=== PATIENT | female | born 1980 | race Hispanic/Latino ===

== ENCOUNTER 2018-02-19 15:55 | Emergency (ER) | payer BC, OTHER ==
--- NOTE | 2018-02-19 17:57 | RAD REPORT ---
EXAM DESCRIPTION: RAD - Hip Left 2 View - 02/19/2018 5:49 pm CLINICAL HISTORY: Left hip pain status post injury FINDINGS: No fracture or dislocation is seen. If the patient continues have symptoms to suggest an occult fracture then MRI would be recommended
--- NOTE | 2018-02-19 18:01 | RAD REPORT ---
EXAM DESCRIPTION: RAD - Knee Left 3 View - 02/19/2018 5:48 pm CLINICAL HISTORY: Left knee pain status post injury FINDINGS: No fracture or dislocation is seen.
--- NOTE | 2018-02-19 18:36 | EDPHYS ---
Physician Documentation [facility] Name: Sailaja Yu Age: 37 yrs Sex: Female : 1980 Arrival Date: 02/19/2018 Time: 16:00 Bed 27 Private MD: ED Physician Armando Purdy HPI: 02/19 17:15 This 37 yrs old Female presents to ER via Ambulatory with complaints of Fall cp Injury, Hip Pain. 17:15 Details of fall: The patient fell from an upright position, while walking. Onset: The cp symptoms/episode began/occurred today. Associated injuries: The patient sustained left hip and left knee, painful injury. SOLUTION DIRECTOR: 16:06 LMP 02/09/2018 hb Historical: - Allergies: 16:06 No Known Allergies; hb - Home Meds: 16:06 None [Active]; hb - PMHx: 16:06 None; hb - PSHx: 16:06 Cholecystectomy; ; hb 16:07 Tubal ligation; hb - Immunization history:: Adult Immunizations up to date. - Social history:: Smoking status: Patient/guardian denies using tobacco. ROS: 17:18 Constitutional: Negative for body aches, chills, fever, poor PO intake. cp 17:18 Eyes: Negative for injury, pain, redness, and discharge. cp 17:18 MS/extremity: Positive for pain, tenderness, of the left hip and left knee, Negative for paresthesias. 17:18 Skin: Negative for cellulitis, rash. 17:18 Neuro: Negative for altered mental status, loss of consciousness, weakness. 17:18 All other systems are negative. Exam: 17:25 Constitutional: The patient appears in no acute distress, alert, awake, well developed, cp well nourished, overweight 17:25 Head/Face: Normocephalic, atraumatic. cp 17:25 Eyes: Periorbital structures: appear normal, Conjunctiva: normal, no exudate, no injection, Lids and lashes: appear normal, bilaterally. 17:25 ENT: External ear(s): are unremarkable, Nose: is normal, Mouth: is normal. 17:25 Neck: ROM/movement: is normal, is supple, without pain, no range of motions limitations, no nuchal rigidity. 17:25 Chest/axilla: Inspection: normal. 17:25 Cardiovascular: Rate: normal, Rhythm: regular. 17:25 Respiratory: the patient does not display signs of respiratory distress, Respirations: normal, no use of accessory muscles, no retractions, no splinting, no tachypnea. 17:25 Abdomen/GI: Inspection: abdomen appears normal, Palpation: abdomen is soft and non-tender, in all quadrants. 17:25 Back: pain, is absent, ROM is normal. 17:25 Musculoskeletal/extremity: Perfusion: the extremity is normally perfused throughout, cp Sensation intact. Joints: All joints are normal except the left hip and left knee displays pain at rest, painful range of motion, tenderness. 17:25 Skin: cellulitis, is not appreciated, no rash present. cp Vital Signs: 16:06 BP 149 / 100; Pulse 97; Resp 16; Temp 97.5; Pulse Ox 100% on R/A; Weight 92.08 kg; hb Height 5 ft. 1 in. (154.94 cm); Pain 5/10; 17:56 BP 117 / 80; Pulse 79; Resp 16; Pulse Ox 98% on R/A; kr2 16:06 Body Mass Index 38.36 (92.08 kg, 154.94 cm) hb Procedures: 18:45 Splinting: Splint applied to left leg and left knee using knee immobilizer, applied by cp nurse. Examined by me, post splint application: neurovascular intact, Patient tolerated well. 18:45 Crutch training provided to patient and/or family. Return demonstration given. cp MDM: 16:37 Patient medically screened. cp 18:00 Differential diagnosis: fracture, sprain, strain. cp 18:34 Data reviewed: vital signs, nurses notes, radiologic studies, plain films. cp 18:34 Test interpretation: by ED physician or midlevel provider: plain radiologic studies. cp Counseling: I had a detailed discussion with the patient and/or guardian regarding: the historical points, exam findings, and any diagnostic results supporting the discharge/admit diagnosis, radiology results, the need for outpatient follow up, a orthopedic surgeon, to return to the emergency department if symptoms worsen or persist or if there are any questions or concerns that arise at home. Response to treatment: the patient's symptoms have mildly improved after treatment. 02/19 17:09 Order name: Urine Dipstick--Ancillary (enter results); Complete Time: 20:26 bd 02/19 17:09 Order name: Urine --Ancillary (enter results); Complete Time: 20:26 bd 02/19 16:36 Order name: Urine Dipstick-Ancillary (obtain specimen); Complete Time: 17:09 cp 02/19 17:14 Order name: XRAY Hip LEFT 2 view; Complete Time: 18:15 cp 02/19 18:15 Interpretation: Report reviewed. cp 02/19 17:14 Order name: XRAY Knee LEFT 3 view; Complete Time: 18:15 cp 02/19 18:15 Interpretation: Report reviewed. cp 02/19 16:36 Order name: Urine Test (obtain specimen); Complete Time: 17:09 cp 02/19 18:16 Order name: Knee Immobilizer; Complete Time: 18:26 cp 02/19 18:16 Order name: Crutches; Complete Time: 18:26 cp Administered Medications: 18:48 Drug: Ibuprofen 800 mg Route: PO; kr2 18:50 Follow up: Response: Medication administered at discharge. kr2 Disposition: 02/19/18 18:35 Discharged to Home. Impression: Pain in left knee - s/p fall, Pain in left hip - s/p fall, Fall on same level from slipping, tripping and stumbling. - Condition is Stable. - Discharge Instructions: Elastic Bandage and RICE, Knee Immobilizer, Knee Pain, Hip Pain. - Prescriptions for Naprosyn 500 mg Oral Tablet - take 1 tablet by ORAL route 2 times per day take with food; 20 tablet. Tramadol 50 mg Oral Tablet - take 1 tablet by ORAL route every 8 hours as needed; 15 tablet. - Medication Reconciliation Form, Thank You Letter, Antibiotic Education, Prescription Opioid Use form. - Work release form (02/19/18 19:43). em1 - Follow up: Shashank Betancourt MD; When: 2 - 3 days; Reason: left knee pain. - Problem is new. - Symptoms are unchanged. Addendum: 03/06/2018 19:51 Co-signature as Attending Physician, Armando Purdy MD I agree with the assessment and k dr plan of care. Signatures: Dispatcher [employer] EDNE Armando Purdy MD MD kdr Page, Corey, PA PA cp Bianca Velasquez RN RN hb Reaves, Karey, RN RN kr2 Ye Lennon1 Corrections: (The following items were deleted from the chart) 02/19 18:37 18:35 02/19/2018 18:35 Discharged to Home. Impression: Pain in left knee - s/p fall; cp Pain in left hip - s/p fall. Condition is Stable. Forms are Medication Reconciliation Form, Thank You Letter, Antibiotic Education, Prescription Opioid Use. Follow up: Dr. Shashank Betancourt; When: 2 - 3 days; Reason: left knee pain. Problem is new. Symptoms are unchanged. cp 18:51 18:37 02/19/2018 18:35 Discharged to Home. Impression: Pain in left knee - s/p fall; kr2 Pain in left hip - s/p fall; Fall on same level from slipping, tripping and stumbling. Condition is Stable. Discharge Instructions: Elastic Bandage and RICE, Knee Immobilizer, Knee Pain, Hip Pain. Prescriptions for Naprosyn 500 mg Oral Tablet - take 1 tablet by ORAL route 2 times per day take with food; 20 tablet, Tramadol 50 mg Oral Tablet - take 1 tablet by ORAL route every 8 hours as needed; 15 tablet. and Forms are Medication Reconciliation Form, Thank You Letter, Antibiotic Education, Prescription Opioid Use. Follow up: Dr. Shashank Betancourt; When: 2 - 3 days; Reason: left knee pain. Problem is new. Symptoms are unchanged. cp
--- NOTE | 2018-02-19 18:36 | ER ---
Nurse's Notes [facility] Name: Sailaja Yu Age: 37 yrs Sex: Female : 1980 Arrival Date: 02/19/2018 Time: 16:00 Bed 27 Private MD: Diagnosis: Pain in left knee-s/p fall;Pain in left hip-s/p fall;Fall on same level from slipping, tripping and stumbling Presentation: 02/19 16:04 Presenting complaint: Patient states: Fell onto crossed legs approx 1 hr while playing hb with son, head and felt a loud pop in her left knee, now c/o left knee and left hip pain 5/10. Transition of care: patient was not received from another setting of care. Onset of symptoms was February 19, 2018 at 14:00. Care prior to arrival: Medication(s) given: Motrin, 600 mg, at 1430. 16:04 Method Of Arrival: Ambulatory hb 16:04 Acuity: EMILIA 4 hb 17:38 Initial Sepsis Screen: Does the patient meet any 2 criteria? No. Patient's initial kr2 sepsis screen is negative. Does the patient have a suspected source of infection? No. Patient's initial sepsis screen is negative. DIRECTOR OF CLOUD SERVICES: 16:06 LMP 02/09/2018 hb Historical: - Allergies: 16:06 No Known Allergies; hb - Home Meds: 16:06 None [Active]; hb - PMHx: 16:06 None; hb - PSHx: 16:06 Cholecystectomy; ; hb 16:07 Tubal ligation; hb - Immunization history:: Adult Immunizations up to date. - Social history:: Smoking status: Patient/guardian denies using tobacco. Screenin:45 Abuse screen: Denies threats or abuse. Denies injuries from another. Nutritional kr2 screening: No deficits noted. Tuberculosis screening: No symptoms or risk factors identified. Fall Risk Fall in past 12 months (25 points). Assessment: 16:45 General: Appears in no apparent distress. comfortable, well groomed, well developed, kr2 well nourished, Behavior is calm, cooperative, appropriate for age. Pain: Complains of pain in left knee Pain does not radiate. Pain currently is 7 out of 10 on a pain scale. Quality of pain is described as aching, tender, Pain began suddenly, Is continuous, Alleviated by rest, cold application, Aggravated by increased activity, repositioning, weight bearing, Noted to be grimacing, guarding. Neuro: Level of Consciousness is awake, alert, obeys commands, Oriented to person, place, time, situation, Appropriate for age. Cardiovascular: Capillary refill < 3 seconds in bilateral fingers Patient's skin is warm and dry. Respiratory: Airway is patent Respiratory effort is even, unlabored, Respiratory pattern is regular, symmetrical. GI: Abdomen is flat, non-distended. : No signs and/or symptoms were reported regarding the genitourinary system. Urine is clear. EENT: Nares are clear bilaterally Oral mucosa is moist. Derm: Skin is intact, is healthy with good turgor, Skin is pink, warm \\T\\ dry. Musculoskeletal: Circulation, motion, and sensation intact. Range of motion: intact in left knee. Injury Description: fall resulting in knee pain. Patient states "I heard a pop and it just doesn't fee right now.". 17:56 Reassessment: Patient appears in no apparent distress at this time. Patient and/or kr2 family updated on plan of care and expected duration. Pain level reassessed. Patient is alert, oriented x 3, equal unlabored respirations, skin warm/dry/pink. Ice pack in place to knee, warm blanket given. 18:49 Reassessment: Patient appears in no apparent distress at this time. Knee immobilizer kr2 placed without difficulty, patient tolerated well and verbalizes comfort. Given crutches and instructed on use. Patient demonstrated proper use. Vital Signs: 16:06 BP 149 / 100; Pulse 97; Resp 16; Temp 97.5; Pulse Ox 100% on R/A; Weight 92.08 kg; hb Height 5 ft. 1 in. (154.94 cm); Pain 5/10; 17:56 BP 117 / 80; Pulse 79; Resp 16; Pulse Ox 98% on R/A; kr2 16:06 Body Mass Index 38.36 (92.08 kg, 154.94 cm) hb ED Course: 16:00 Patient arrived in ED. al2 16:06 Triage completed. hb 16:06 Arm band placed on left wrist. hb 16:36 Vickey Rogers PA is PHCP. cp 16:36 Armando Purdy MD is Attending Physician. cp 16:45 Patient has correct armband on for positive identification. Bed in low position. Call kr2 light in reach. Side rails up X 1. Pulse ox on. NIBP on. Door closed. Warm blanket given. Head of bed elevated. 16:49 Beverly Llanes, RN is Primary Nurse. kr2 17:37 X-ray completed. Portable x-ray completed in exam room. Patient tolerated procedure kp1 well. 17:40 XRAY Hip LEFT 2 view In Process Unspecified. EDMS 17:40 XRAY Knee LEFT 3 view In Process Unspecified. EDMS 18:34 Shashank Betancourt MD is Referral Physician. cp 18:49 No provider procedures requiring assistance completed. Patient did not have IV access kr2 during this emergency room visit. Administered Medications: 18:48 Drug: Ibuprofen 800 mg Route: PO; kr2 18:50 Follow up: Response: Medication administered at discharge. kr2 Outcome: 18:35 Discharge ordered by MD. cp 18:50 Discharged to home ambulatory, with crutches, with family. kr2 18:50 Condition: good 18:50 Discharge instructions given to patient, Instructed on discharge instructions, follow up and referral plans. medication usage, crutch walking, splint use Demonstrated understanding of instructions, follow-up care, medications, crutch walking, splint care, Prescriptions given X 2. 18:51 Patient left the ED. kr2 Signatures: Dispatcher [employer] EDCO Vickey Rogers PA PA cp Baxter, Heather, RN RN hb Poole, Kathy kp1 Beverly Llanes RN RN kr2 Maye Mcintosh al2 Corrections: (The following items were deleted from the chart) 18:50 18:49 Reassessment: Patient appears in no apparent distress at this time. Knee kr2 immobilizer placed without difficulty, patient tolerated well and verbalizes comfort kr2
[2018-02-19] MEDS ORDERED: IBUPROFEN 400 MG TAB ONE (18:38)
[2018-02-19 19:08] VITALS: TEMP 97.5
[2018-02-19 19:09] VITALS: BP 117/80; O2SAT 98
[2018-02-19 19:14] LABS: Urine Blood NEGATIVE (NEG); Urine Glucose NEGATIVE (NEG); Urine Protein NEGATIVE (NEG); Urine pH 6.5 (5.0-7.0)
== END 2018-02-19 18:51 | disposition home or self-care (01) ==
LOC: ER 15:55
DX: M25.552 Pain in left hip (principal); M25.562 Pain in left knee; W01.0XXA Fall on same level from slipping, tripping and stumbling without subsequent striking against object, initial encounter; Y93.89 Activity, other specified; Y92.9 Unspecified place or not applicable
CPT/HCPCS: 81003; 81025; 99284

== ENCOUNTER 2018-05-03 21:42 | Emergency (ER) | payer OTHER ==
--- OUTSIDE RECORDS SUMMARY | 2018-05-03 21:44 | XMS REPORT ---
:1980 Author Organization e[employer] Care Team Providers Name Role Phone Jessie Richh Provider Role Unavailable Allergies, Adverse Reactions, Alerts Substance Reaction Event Type N.K.D.A. Info Not Available Non Drug Allergy Problems Problem Type Condition Code Onset Dates Condition Status Assessment Status post fall Z91.81 Active Assessment Pain of meniscus of left knee M25.562 Active Assessment Left medial knee pain M25.562 Active Medications Medication Code System Code Instructions Start Date End Date Status Dosage Duexis [facility] 44625333693 800-26.6 MG February 23, March 25, Active 1 tablet Orally Three 2018 2018 times a day Results No Known Results Summary Purpose eClinicalWorks Submission
--- OUTSIDE RECORDS SUMMARY | 2018-05-03 21:44 | XMS REPORT ---
:1980 Author Organization e[employer] Care Team Providers Name Role Phone Hernando Rich Provider Role Unavailable Allergies No Known Allergies Problems Problem Type Condition Code Onset Dates Condition Status Problem Tear of medial collateral ligament S83.412D Active of left knee, subsequent encounter Problem Adult BMI 40.0-44.9 kg/sq m Z68.41 Active Problem Hyperlipidemia, unspecified E78.5 Active hyperlipidemia type Assessment Adult BMI 40.0-44.9 kg/sq m Z68.41 Active Assessment Hyperlipidemia, unspecified E78.5 Active hyperlipidemia type Assessment Tear of medial collateral ligament S83.412D Active of left knee, subsequent encounter Medications Medication Code System Code Instructions Start Date End Date Status Dosage Duexis [facility] 10610602526 800-26.6 MG Active TAKE 1 TABLET BY MOUTH THREE TIMES DAILY NEEDED FOR PAIN Results No Known Results Summary Purpose eClinicalWorks Submission
--- OUTSIDE RECORDS SUMMARY | 2018-05-03 21:44 | XMS REPORT ---
:1980 Author Organization e[employer]Works Care Team Providers Name Role Phone Hilario Hernando Provider Role Unavailable Allergies, Adverse Reactions, Alerts Substance Reaction Event Type N.K.D.A. Info Not Available Non Drug Allergy Problems Problem Type Condition Code Onset Dates Condition Status Assessment Encounter for preventative adult Z00.01 Active health care exam with abnormal findings Assessment Tear of medial collateral ligament S83.412D Active of left knee, subsequent encounter Problem Adult BMI 40.0-44.9 kg/sq m Z68.41 Active Assessment Adult BMI 40.0-44.9 kg/sq m Z68.41 Active Medications Medication Code System Code Instructions Start Date End Date Status Dosage Duexis [facility] [id number] 800-26.6 MG February 23, March 25, Active 1 tablet Orally Three 2018 2018 times a day Results No Known Results Summary Purpose eClinicalWorks Submission
--- NOTE | 2018-05-03 22:25 | EDPHYS ---
Physician Documentation [facility] Name: Sailaja Yu Age: 37 yrs Sex: Female : 1980 Arrival Date: 05/03/2018 Time: 21:42 Bed 28 Private MD: Hilario [facility], [facility] ED Physician Jeremy Luu HPI: 05/03 22:21 This 37 yrs old Female presents to ER via Ambulatory with complaints of Wasp jr8 Sting-on Foot. 22:21 The patient was bitten on the left foot, by a wasp. Onset: The symptoms/episode jr8 began/occurred acutely, today. Associated signs and symptoms: Pertinent positives: tenderness. Severity of symptoms: At their worst the symptoms were mild, in the emergency department the symptoms are unchanged. The patient has not experienced similar symptoms in the past. The patient has not recently seen a physician. stated that she took the stinger out but still having radiating pain up leg from sting and cannot tolerate it. Took 800 mg Ibuprofen around 7 pm . 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 - Social history:: Smoking status: Patient/guardian denies using tobacco, Patient uses alcohol, occasionally. Patient/guardian denies using street drugs. - Ebola Screening: : No symptoms or risks identified at this time. ROS: 22:21 Eyes: Negative for injury, pain, redness, and discharge, ENT: Negative for injury, jr8 pain, and discharge, Neck: Negative for injury, pain, and swelling, Cardiovascular: Negative for chest pain, palpitations, and edema, Respiratory: Negative for shortness of breath, cough, wheezing, and pleuritic chest pain, Abdomen/GI: Negative for abdominal pain, nausea, vomiting, diarrhea, and constipation, Back: Negative for injury and pain, Neuro: Negative for headache, weakness, numbness, tingling, and seizure. 22:21 MS/extremity: Positive for pain, swelling, tenderness, of the left foot. Exam: 22:21 Cardiovascular: Regular rate and rhythm with a normal S1 and S2. No gallops, murmurs, jr8 or rubs. Normal PMI, no JVD. No pulse deficits. Respiratory: Lungs have equal breath sounds bilaterally, clear to auscultation and percussion. No rales, rhonchi or wheezes noted. No increased work of breathing, no retractions or nasal flaring. Skin: Warm, dry with normal turgor. Normal color with no rashes, no lesions, and no evidence of cellulitis. Neuro: Awake and alert, GCS 15, oriented to person, place, time, and situation. Cranial nerves II-XII grossly intact. Motor strength 5/5 in all extremities. Sensory grossly intact. Cerebellar exam normal. Normal gait. 22:21 Musculoskeletal/extremity: Extremities: grossly normal except: noted in the left foot: Patient has mild swelling to left medial mid foot with small red dot where stinger was. Tenderness to region. No ecchymosis or other signs of trauma noted , ROM: intact in all extremities, Circulation is intact in all extremities. Sensation intact. Vital Signs: 21:56 BP 123 / 93; Pulse 91; Resp 18 S; Temp 98.3(O); Pulse Ox 98% on R/A; Weight 90.72 kg bb (R); Height 5 ft. 1 in. (154.94 cm) (R); Pain 10/10; 21:56 Body Mass Index 37.79 (90.72 kg, 154.94 cm) bb MDM: 22:00 Patient medically screened. 8 22:21 Data reviewed: vital signs, nurses notes, and as a result, I will discharge patient. jr8 Data interpreted: Pulse oximetry: on room air is 98 %. Interpretation: normal. Counseling: I had a detailed discussion with the patient and/or guardian regarding: the historical points, exam findings, and any diagnostic results supporting the discharge/admit diagnosis, the need for outpatient follow up, a family practitioner, to return to the emergency department if symptoms worsen or persist or if there are any questions or concerns that arise at home. ED course: Told patient to [facility] to help with pain. Otherwise to continue OTC medications . Administered Medications: 22:48 Drug: [place] 10 mg-325 mg 1 tabs Route: PO; tl3 22:52 Follow up: Response: Medication administered at discharge. tl3 Disposition: 05/04 20:33 Co-signature as Attending Physician, Jeremy Luu MD I agree with the assessment and tw4 plan of care. Disposition: 05/03/18 22:24 Discharged to Home. Impression: Toxic effect of venom of wasps, accidental (unintentional). - Condition is Stable. - Discharge Instructions: Bee, Wasp, or Hornet Sting. - Medication Reconciliation Form, Thank You Letter, Antibiotic Education, Prescription Opioid Use form. - Follow up: Hernando Rich DO; When: 2 - 3 days; Reason: Recheck today's complaints, Continuance of care, Re-evaluation by your physician. - Problem is new. - Symptoms have improved. Signatures: Kathy De La Cruz RN RN Idris Vela PA PA jr8 Jeremy Luu MD MD tw4 Enriqueta Basurto RN RN tl3 Corrections: (The following items were deleted from the chart) 05/03 22:52 22:24 05/03/2018 22:24 Discharged to Home. Impression: Toxic effect of venom of wasps, tl3 accidental (unintentional). Condition is Stable. Forms are Medication Reconciliation Form, Thank You Letter, Antibiotic Education, Prescription Opioid Use. Follow up: Hernando Rich; When: 2 - 3 days; Reason: Recheck today's complaints, Continuance of care, Re-evaluation by your physician. Problem is new. Symptoms have improved. jr8
--- NOTE | 2018-05-03 22:25 | ER ---
Nurse's Notes [facility] Name: Sailaja Yu Age: 37 yrs Sex: Female : 1980 Arrival Date: 05/03/2018 Time: 21:42 Bed 28 Private MD: Hernando Rich Diagnosis: Toxic effect of venom of wasps, accidental (unintentional) Presentation: 05/03 21:54 Presenting complaint: Patient states: she was stung by a wasp on the bottom of her left bb foot earlier today and the pain is shooting up her left leg. Transition of care: patient was not received from another setting of care. Onset of symptoms was May 03, 2018. Risk Assessment: Do you want to hurt yourself or someone else? Patient reports no desire to harm self or others. Initial Sepsis Screen: Does the patient meet any 2 criteria? No. Patient's initial sepsis screen is negative. Does the patient have a suspected source of infection? No. Patient's initial sepsis screen is negative. Care prior to arrival: None. 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 - Social history:: Smoking status: Patient/guardian denies using tobacco, Patient uses alcohol, occasionally. Patient/guardian denies using street drugs. - Ebola Screening: : No symptoms or risks identified at this time. Screenin:49 Abuse screen: Denies threats or abuse. Nutritional screening: No deficits noted. tl3 Tuberculosis screening: No symptoms or risk factors identified. Fall Risk None identified. Assessment: 22:49 General: Appears uncomfortable, well groomed, well developed, well nourished, Behavior tl3 is calm, cooperative, appropriate for age. Pain: Complains of pain in left foot Pain currently is 10 out of 10 on a pain scale. Neuro: Level of Consciousness is awake, alert, obeys commands, Oriented to person, place, time, situation, Appropriate for age. Cardiovascular: Patient's skin is warm and dry. Respiratory: Airway is patent Respiratory effort is even, unlabored, Respiratory pattern is regular, symmetrical. GI: No signs and/or symptoms were reported involving the gastrointestinal system. : No signs and/or symptoms were reported regarding the genitourinary system. EENT: No signs and/or symptoms were reported regarding the EENT system. Derm: Reports burning, pain stung by wasp on left foot. Vital Signs: 21:56 BP 123 / 93; Pulse 91; Resp 18 S; Temp 98.3(O); Pulse Ox 98% on R/A; Weight 90.72 kg bb (R); Height 5 ft. 1 in. (154.94 cm) (R); Pain 10/10; 21:56 Body Mass Index 37.79 (90.72 kg, 154.94 cm) bb ED Course: 21:42 Patient arrived in ED. ds1 21:43 Hernando Rich DO is Private Physician. ds1 21:55 Triage completed. bb 21:56 Arm band placed on Patient placed in an exam room, on a stretcher, on pulse oximetry. bb Family accompanied patient. 22:00 Idris Townsend PA is PHCP. jr8 22:00 Jeremy Luu MD is Attending Physician. jr8 22:16 Enriqueta Basurto, REX is Primary Nurse. tl3 22:23 Hernando Rich DO is Referral Physician. jr8 22:49 Patient has correct armband on for positive identification. tl3 22:49 No provider procedures requiring assistance completed. Patient did not have IV access tl3 during this emergency room visit. Administered Medications: 22:48 Drug: Viola 10 mg-325 mg 1 tabs Route: PO; tl3 22:52 Follow up: Response: Medication administered at discharge. tl3 Outcome: 22:24 Discharge ordered by . jr8 22:49 Discharged to home ambulatory. tl3 22:49 Condition: stable 22:49 Discharge instructions given to patient, Instructed on discharge instructions, follow up and referral plans. medication usage, Demonstrated understanding of instructions, follow-up care, medications. 22:52 Patient left the ED. tl3 Signatures: Aliza Guerra ds1 Kathy De La Cruz RN RN bb Idris Townsend PA PA jr8 Sherine, Enriqueta, RN RN tl3
[2018-05-03] MEDS ORDERED: HYDROCODONE/APAP 10/325 TAB ONE (22:48)
[2018-05-03 22:56] VITALS: BP 123/93; TEMP 98.3; O2SAT 98
== END 2018-05-03 22:52 | disposition home or self-care (01) ==
LOC: ER 21:42
DX: T63.461A Toxic effect of venom of wasps, accidental (unintentional), initial encounter (principal); Y92.9 Unspecified place or not applicable
CPT/HCPCS: 99283

== ENCOUNTER 2020-02-04 19:48 | Emergency (ER) | payer OTHER ==
--- OUTSIDE RECORDS SUMMARY | 2020-02-04 19:50 | XMS REPORT ---
:1980 Author Organization eClinicalWorks Care Team Providers Name Role Phone Hernando Rich Provider Role Unavailable Allergies No Known Allergies Problems Problem Type Condition Code Onset Dates Condition Status Assessment Adult BMI 40.0-44.9 kg/sq m Z68.41 Active Problem Adult BMI 40.0-44.9 kg/sq m Z68.41 Active Problem Allergic rhinitis, unspecified J30.9 Active seasonality, unspecified trigger Problem Adult BMI 35.0-35.9 kg/sq m Z68.35 Active Problem Other chronic pain G89.29 Active Problem Hyperlipidemia, unspecified E78.5 Active hyperlipidemia type Problem Tear of medial collateral ligament S83.412D Active of left knee, subsequent encounter Problem Vitamin B12 deficiency E53.8 Active Problem Fatigue, unspecified type R53.83 Active Medications Medication Code Code Instructions Start End Status Dosage System Date Date Phentermine HCl [facility] 73697089089 30 MG Orally Sept Inactive 1 capsule Once a day 2018 Results No Known Results Summary Purpose eClinicalWorks Submission
--- OUTSIDE RECORDS SUMMARY | 2020-02-04 19:51 | XMS REPORT ---
:1980 Author Organization eClinicalWorks Care Team Providers Name Role Phone Hilario Hernando Provider Role Unavailable Allergies, Adverse Reactions, Alerts Substance Reaction Event Type N.K.D.A. Info Not Available Non Drug Allergy Problems Problem Type Condition Code Onset Dates Condition Status Assessment Allergic rhinitis, unspecified J30.9 Active seasonality, unspecified trigger Problem Adult BMI 40.0-44.9 kg/sq m Z68.41 [...] Status Dosage System Date Date Phentermine HCl [facility] 20297830104 37.5 MG Orally Active 1 tablet Once a day Lomaira [facility] 51600529122 8 MG Orally Active 1 tablet Three times a 30 minutes day before meals Results No Known Results Summary Purpose eClinicalWorks Submission
--- OUTSIDE RECORDS SUMMARY | 2020-02-04 19:51 | XMS REPORT ---
:1980 Author Organization eClinicalWorks Care Team Providers Name Role Phone Jessie Richh Provider Role Unavailable Allergies, Adverse Reactions, Alerts Substance Reaction Event Type N.K.D.A. Info Not Available Non Drug Allergy Problems Problem Type Condition Code Onset Dates Condition Status Assessment Adult BMI 35.0-35.9 kg/sq m Z68.35 Active Problem Adult BMI 40.0-44.9 kg/sq m Z68.41 Active Assessment Encounter for dietary counseling Z71.3 Active and surveillance Assessment Iron deficiency E61.1 Active Assessment Vitamin B12 deficiency E53.8 Active Assessment Fatigue, unspecified type R53.83 Active Problem Allergic rhinitis, unspecified J30.9 Active [...] Start End Status Dosage System Date Date Lomaira [facility] 82868267891 8 MG Orally Sep 06, Oct 06, Active 1 tablet Three times a 2018 2018 30 minutes day before meals Phentermine HCl [facility] 04223982152 37.5 MG Orally Active 1 tablet Once a day Results No Known Results Summary Purpose eClinicalWorks Submission
--- OUTSIDE RECORDS SUMMARY | 2020-02-04 19:51 | XMS REPORT ---
:1980 Author Organization eClinicalWorks Care Team Providers Name Role Phone Hernando Rich Provider Role Unavailable Allergies No Known Allergies Problems Problem Type Condition Code Onset Dates Condition Status Problem Adult BMI 40.0-44.9 kg/sq m Z68.41 [...] Medications Medication Code Code Instructions Start End Date Status Dosage System Date Zithromax [facility] 93840831681 250 MG Orally December Active 2 tablets Z-Kenan once a day 2019 today, then 1 tablet Results No Known Results Summary Purpose eClinicalWorks Submission
[2020-02-04] MEDS ORDERED: NA CHLORIDE 0.9% 1,000 ML ONE (20:18)
[2020-02-04] MEDS ORDERED: KETOROLAC 30 MG/ML INJ ONE (20:18)
[2020-02-04] MEDS ORDERED: ONDANSETRON 4 MG/2 ML VIAL ONE (20:18)
[2020-02-04 20:20] LABS: Absolute Lymphocytes (CBC) 2.3 K/uL (0.7-4.9); Basophils % 0.5 % (0-1.3); Hematocrit 37.8 % (36.0-45.0); Lymphocytes % 17.2 % (15.3-44.8); MPV 7.1 fL (7.6-11.3)
[2020-02-04 20:36] LABS: Albumin 3.7 g/dL (3.4-5.0); Bilirubin Direct 0.1 mg/dL (0-0.2); Bilirubin Total 0.4 mg/dL (0.2-1.0); Potassium 3.5 mmol/L (3.5-5.1); Protein, Total 8.3 g/dL (6.4-8.2)
[2020-02-04 20:50] LABS: Urine Bacteria 20-50 /HPF (<20); Urine Culture Reflex Order REFLEXED; Urine Mucus 3+ /HPF (NONE SEEN); Urine RBC >50 /HPF (NONE SEEN)
[2020-02-04] MEDS ORDERED: MORPHINE 4 MG/ML SYR ONE (21:09)
--- NOTE | 2020-02-04 21:11 | RAD REPORT ---
EXAM DESCRIPTION: CT - Stone Protocol - 02/04/2020 8:56 pm CLINICAL HISTORY: Abdominal pain. COMPARISON: 2011 TECHNIQUE: Computed axial tomography of the abdomen pelvis was obtained without oral or IV contrast. Lack of IV and oral contrast limits evaluation of solid organs, bowel, and vessels. Coronal reformat kassidy images were obtained and reviewed. All CT scans are performed using dose optimization technique as appropriate and may include automated exposure control or mA/KV adjustment according to patient size. FINDINGS: Small bilateral renal calculi. [id number] right hydronephrosis with perirenal strand ing. The right ureter is dilated. 5 millimeter calculus right UVJ Hounsfield unit on 1064 The liver, spleen, pancreas and adrenals appear grossly normal There is no evidence of diverticulitis. The appendix appears normal Small umbilical hernia. Cholecystectomy IMPRESSION: A 5 millimeter calculus right UVJ resulting in mild to moderate right hydronephrosis
[2020-02-04] MEDS ORDERED: FENTANYL CITR 100 MCG/2 ML ONE (22:01)
--- NOTE | 2020-02-04 22:12 | EDPHYS ---
Physician Documentation [facility] Name: Sailaja Yu Age: 39 yrs Sex: Female : 1980 Arrival Date: 02/04/2020 Time: 19:51 Bed 20 Private MD: ED Physician Jeremy Luu HPI: 02/04 06:52 This 39 yrs old Female presents to ER via Ambulatory with complaints of Kidney tw4 Pain, Nausea. 06:52 The patient presents to the emergency department with nausea, vomiting. Onset: The tw4 symptoms/episode began/occurred 2 day(s) ago. Possible causes: unknown. The symptoms are aggravated by nothing. The symptoms are alleviated by remaining still. Associated signs and symptoms: The patient has no apparent associated signs or symptoms. Severity of symptoms: At their worst the symptoms were moderate in the emergency department the symptoms are unchanged. The patient has not experienced similar symptoms in the past. 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 - Social history:: Smoking status: Patient denies any tobacco usage or history of. Patient uses alcohol, but reports only rare drinking. ROS: 02/04 06:52 Constitutional: Negative for fever, chills, and weight loss, Eyes: Negative for injury, tw4 pain, redness, and discharge, Cardiovascular: Negative for chest pain, palpitations, and edema, Respiratory: Negative for shortness of breath, cough, wheezing, and pleuritic chest pain, MS/Extremity: Negative for injury and deformity, Skin: Negative for injury, rash, and discoloration. Abdomen/GI: Positive for abdominal pain, nausea and vomiting, nausea, Negative for abdominal pain, nausea and vomiting, diarrhea, constipation, abdominal cramps, abdominal distension. Back: Positive for flank pain, on the right. Exam: 06:52 Constitutional: This is a well developed, well nourished patient who is awake, alert, tw4 and in no acute distress. Head/Face: Normocephalic, atraumatic. Cardiovascular: Regular rate and rhythm with a normal S1 and S2. No gallops, murmurs, or rubs. Normal PMI, no JVD. No pulse deficits. Respiratory: Lungs have equal breath sounds bilaterally, clear to auscultation and percussion. No rales, rhonchi or wheezes noted. No increased work of breathing, no retractions or nasal flaring. Abdomen/GI: Soft, non-tender, with normal bowel sounds. No distension or tympany. No guarding or rebound. No evidence of tenderness throughout. Back: No spinal tenderness. No costovertebral tenderness. Full range of motion. MS/ Extremity: Pulses equal, no cyanosis. Neurovascular intact. Full, normal range of motion. Neuro: Awake and alert, GCS 15, oriented to person, place, time, and situation. Cranial nerves II-XII grossly intact. Motor strength 5/5 in all extremities. Sensory grossly intact. Cerebellar exam normal. Normal gait. Vital Signs: 02/03 19:56 BP 145 / 93; Pulse 78; Resp 18 S; Temp 98.2(O); Pulse Ox 99% on R/A; Weight 88.45 kg bb (R); Height 5 ft. 1 in. (154.94 cm) (R); Pain 10/10; 20:36 BP 132 / 100; Pulse 84; Resp 17; Pulse Ox 99% on R/A; rv 21:36 BP 141 / 86; Pulse 72; Resp 16; Temp 98; Pulse Ox 99% ; Pain 7/10; rv 21:37 Pain 7/10; rv 22:33 BP 146 / 74; Pulse 79; Resp 16; Temp 98; Pulse Ox 99% on R/A; rv 19:56 Body Mass Index 36.84 (88.45 kg, 154.94 cm) bb MDM: 20:01 Patient medically screened. tw4 02/04 06:57 Differential diagnosis: Nonspecific abd pain, gastritis, cholecystitis. Data reviewed: tw4 vital signs, EMS record. Data interpreted: Pulse oximetry: Interpretation: normal. Counseling: I had a detailed discussion with the patient and/or guardian regarding: the historical points, exam findings, and any diagnostic results supporting the discharge/admit diagnosis. Medication response: Toradol relieved patient's pain. The symptoms have resolved. Response to treatment: the patient's symptoms have markedly improved after treatment, and as a result, I will discharge patient, administer pain medication. Special discussion: I discussed with the patient/guardian in detail that at this point there is no indication for admission to the hospital. It is understood, however, that if the symptoms persist or worsen the patient needs to return immediately for re-evaluation. 02/03 20:02 Order name: Basic Metabolic Panel; Complete Time: 22:20 tw4 02/03 20:02 Order name: CBC with Diff; Complete Time: 22:20 tw4 02/03 20:02 Order name: Creatinine for Radiology; Complete Time: 22:20 tw4 02/03 20:02 Order name: Hepatic Function; Complete Time: 22:20 tw4 02/03 20:02 Order name: Lipase; Complete Time: 22:20 tw4 02/03 20:02 Order name: Urine Microscopic Only; Complete Time: 22:20 tw4 02/03 20:36 Order name: CT Stone Protocol; Complete Time: 21:39 tw4 02/03 20:52 Order name: Urine Culture [facility] 02/03 20:02 Order name: IV Saline Lock; Complete Time: 20:21 tw4 02/03 20:02 Order name: Labs collected and sent; Complete Time: 20:21 tw4 02/03 20:02 Order name: Urine Dipstick-Ancillary (obtain specimen); Complete Time: 20:35 tw4 02/03 20:36 Order name: Urine Test (obtain specimen); Complete Time: 20:37 tw4 Administered Medications: 02/03 20:15 Drug: TORadol 30 mg Route: IVP; Site: right antecubital; rv 20:35 Follow up: Response: No adverse reaction; Pain is decreased rv 20:15 Drug: Zofran (Ondansetron) 4 mg Route: IVP; Site: right antecubital; rv 20:35 Follow up: Response: No adverse reaction rv 20:15 Drug: NS 0.9% 1000 ml Route: IV; Rate: 1 bolus; Site: right antecubital; rv 21:37 Follow up: IV Status: Completed infusion; IV Intake: 1000ml rv 21:13 Drug: morphine 4 mg {Note: rass 0.} Route: IVP; Site: right antecubital; rv 21:37 Follow up: Pain 7/10 Adult; Response: No adverse reaction; Pain is decreased; RASS: rv Alert and Calm (0) 21:58 Drug: fentaNYL (PF) 50 mcg {Note: rass 0.} Route: IVP; Site: left antecubital; rv 22:33 Follow up: Response: No adverse reaction; Marked relief of symptoms; Pain is decreased; rv RASS: Alert and Calm (0) 22:35 Drug: Macrobid 100 mg Route: PO; rv 22:35 Follow up: Response: Medication administered at discharge. rv Disposition: 02/04/20 22:11 Discharged to Home. Impression: Calculus of ureter. - Condition is Stable. - Discharge Instructions: Kidney Stones, Renal Colic. - Prescriptions for Tylenol- Codeine #3 300-30 mg Oral Tablet - take 2 tablets by ORAL route every 6 hours As needed; 15 tablet. Zofran 4 mg Oral Tablet - take 1 tablet by ORAL route every 12 hours As needed; 6 tablet. Flomax 0.4 mg Oral Capsule, Sust. Release 24 hr - take 1 capsule by ORAL route once daily 1/2 hour following the same meal each day; 30 capsule. Macrobid 100 mg Oral Capsule - take 1 capsule by ORAL route every 12 hours for 14 days; 28 capsule. - Medication Reconciliation Form, Thank You Letter, Antibiotic Education, Prescription Opioid Use form. - Follow up: Private Physician; When: Upon discharge from the Emergency Department; Reason: Recheck today's complaints, Continuance of care, Re-evaluation by your physician. Follow up: Denilson Olivo MD; When: Upon discharge from the Emergency Department; Reason: Recheck today's complaints, Continuance of care, Re-evaluation by your physician. - Problem is new. - Symptoms have improved. Signatures: Dispatcher [employer] EDID Kathy De La Cruz RN RN Jeremy Hubbard MD MD tw4 Efrain Foster RN RN rv Corrections: (The following items were deleted from the chart) 22:26 22:11 02/04/2020 22:11 Discharged to Home. Impression: Calculus of ureter. Condition is tw4 Stable. Forms are Medication Reconciliation Form, Thank You Letter, Antibiotic Education, Prescription Opioid Use. Follow up: Private Physician; When: Upon discharge from the Emergency Department; Reason: Recheck today's complaints, Continuance of care, Re-evaluation by your physician. Problem is new. Symptoms have improved. tw4 22:36 22:26 02/04/2020 22:11 Discharged to Home. Impression: Calculus of ureter. Condition is rv Stable. Discharge Instructions: Kidney Stones, Renal Colic. Prescriptions for Tylenol-Codeine #3 300-30 mg Oral Tablet - take 2 tablets by ORAL route every 6 hours As needed; 15 tablet, Zofran 4 mg Oral Tablet - take 1 tablet by ORAL route every 12 hours As needed; 6 tablet, Flomax 0.4 mg Oral Capsule, Sust. Release 24 hr - take 1 capsule by ORAL route once daily 1/2 hour following the same meal each day; 30 capsule, Macrobid 100 mg Oral Capsule - take 1 capsule by ORAL route every 12 hours for 14 days; 28 capsule. and Forms are Medication Reconciliation Form, Thank You Letter, Antibiotic Education, Prescription Opioid Use. Follow up: Private Physician; When: Upon discharge from the Emergency Department; Reason: Recheck today's complaints, Continuance of care, Re-evaluation by your physician. Follow up: Denilson Olivo; When: Upon discharge from the Emergency Department; Reason: Recheck today's complaints, Continuance of care, Re-evaluation by your physician. Problem is new. Symptoms have improved. tw4
--- NOTE | 2020-02-04 22:12 | ER ---
Nurse's Notes [facility] Name: Sailaja Yu Age: 39 yrs Sex: Female : 1980 Arrival Date: 02/04/2020 Time: 19:51 Bed 20 Private MD: Diagnosis: Calculus of ureter Presentation: 02/03 19:56 Chief complaint: Patient states: she is having back pain radiating to her abdomen she bb has had a history of kidney stones in the past pain just started this afternoon and is getting worse she is unable to hold anything down. Coronavirus screen: Patient denies fever greater than 100.4F, cough, shortness of breath, or difficulty breathing. Proceed with normal triage process. Ebola Screen: No symptoms or risks identified at this time. Initial Sepsis Screen: Does the patient meet any 2 criteria? No. Patient's initial sepsis screen is negative. Does the patient have a suspected source of infection? No. Patient's initial sepsis screen is negative. Risk Assessment: Do you want to hurt yourself or someone else? Patient reports no desire to harm self or others. Onset of symptoms was February 04, 2020. 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 - Social history:: Smoking status: Patient denies any tobacco usage or history of. Patient uses alcohol, but reports only rare drinking. Screenin:23 Abuse screen: Denies threats or abuse. Denies injuries from another. Nutritional rv screening: No deficits noted. Tuberculosis screening: No symptoms or risk factors identified. Fall Risk None identified. Assessment: 20:22 General: Appears in no apparent distress. uncomfortable, Behavior is calm, cooperative. rv Pain: Complains of pain in back and abdomen Pain currently is 10 out of 10 on a pain scale. Neuro: Level of Consciousness is awake, alert, obeys commands, Oriented to person, place, time, situation. Cardiovascular: Patient's skin is warm and dry. Respiratory: Airway is patent. GI: Abdomen is round non-distended, Pt is actively vomiting bile. : Reports inability to void. Derm: Skin is intact. 20:58 Reassessment: patient went to CT scan. rv 21:10 Reassessment: Patient appears in no apparent distress at this time. Patient and/or rv family updated on plan of care and expected duration. Pain level reassessed. Patient is alert, oriented x 3, equal unlabored respirations, skin warm/dry/pink. came back from CT scan. still complaining of 8/[address] Luu. 21:35 Reassessment: Patient appears in no apparent distress at this time. result of test rv results explained to the patient. 22:34 Reassessment: Patient appears in no apparent distress at this time. Patient and/or rv family updated on plan of care and expected duration. Pain level reassessed. Patient is alert, oriented x 3, equal unlabored respirations, skin warm/dry/pink. Vital Signs: 19:56 BP 145 / 93; Pulse 78; Resp 18 S; Temp 98.2(O); Pulse Ox 99% on R/A; Weight 88.45 kg bb (R); Height 5 ft. 1 in. (154.94 cm) (R); Pain 10/10; 20:36 BP 132 / 100; Pulse 84; Resp 17; Pulse Ox 99% on R/A; rv 21:36 BP 141 / 86; Pulse 72; Resp 16; Temp 98; Pulse Ox 99% ; Pain 7/10; rv 21:37 Pain 7/10; rv 22:33 BP 146 / 74; Pulse 79; Resp 16; Temp 98; Pulse Ox 99% on R/A; rv 19:56 Body Mass Index 36.84 (88.45 kg, 154.94 cm) bb ED Course: 19:51 Patient arrived in ED. ds1 19:58 Triage completed. bb 19:59 Arm band placed on Patient placed in an exam room, on a stretcher, on pulse oximetry. bb 20:01 Jeremy Luu MD is Attending Physician. tw4 20:10 Inserted saline lock: 18 gauge in right antecubital area, using aseptic technique. rv Blood collected. 20:10 Initial lab(s) drawn, by me, sent to lab. rv 20:19 Efrain Foster, REX is Primary Nurse. rv 20:23 Patient has correct armband on for positive identification. Pulse ox on. NIBP on. rv 20:56 CT completed. Patient tolerated procedure well. Patient moved back from CT. mw3 20:56 CT Stone Protocol In Process Unspecified. EDMS 22:26 Denilson Olivo MD is Referral Physician. tw4 22:35 No provider procedures requiring assistance completed. IV discontinued, intact, rv bleeding controlled, No redness/swelling at site. Pressure dressing applied. Administered Medications: 20:15 Drug: TORadol 30 mg Route: IVP; Site: right antecubital; rv 20:35 Follow up: Response: No adverse reaction; Pain is decreased rv 20:15 Drug: Zofran (Ondansetron) 4 mg Route: IVP; Site: right antecubital; rv 20:35 Follow up: Response: No adverse reaction rv 20:15 Drug: NS 0.9% 1000 ml Route: IV; Rate: 1 bolus; Site: right antecubital; rv 21:37 Follow up: IV Status: Completed infusion; IV Intake: 1000ml rv 21:13 Drug: morphine 4 mg {Note: rass 0.} Route: IVP; Site: right antecubital; rv 21:37 Follow up: Pain 7/10 Adult; Response: No adverse reaction; Pain is decreased; RASS: rv Alert and Calm (0) 21:58 Drug: fentaNYL (PF) 50 mcg {Note: rass 0.} Route: IVP; Site: left antecubital; rv 22:33 Follow up: Response: No adverse reaction; Marked relief of symptoms; Pain is decreased; rv RASS: Alert and Calm (0) 22:35 Drug: Macrobid 100 mg Route: PO; rv 22:35 Follow up: Response: Medication administered at discharge. rv Intake: 21:37 IV: 1000ml; Total: 1000ml. rv Outcome: 22:11 Discharge ordered by . tw4 22:36 Discharged to home ambulatory, with family. rv 22:36 Condition: good 22:36 Discharge instructions given to patient, Instructed on discharge instructions, follow up and referral plans. medication usage, Demonstrated understanding of instructions, follow-up care, medications, Prescriptions given X 4. 22:36 Patient left the ED. rv Signatures: Dispatcher [employer] Aliza Rose ds1 Kathy De La Cruz, RN RN bb Jeremy Luu MD MD tw4 Mariel Serrano mw3 Efrain Foster RN RN rv
[2020-02-04] MEDS ORDERED: NITROFURAN MACRO 100 MG CAP PO ONE (22:28)
[2020-02-04 22:44] VITALS: O2SAT 99
[2020-02-04 22:47] VITALS: TEMP 98
[2020-02-04 22:49] VITALS: BP 146/74
== END 2020-02-04 22:36 | disposition home or self-care (01) ==
LOC: ER 19:48
DX: N20.1 Calculus of ureter (principal); Z87.442 Personal history of urinary calculi
CPT/HCPCS: 96361; 87088; 85025; 87086; 80048; 36415; 80076; 81015; 83690; 76377; 74176; 96375; 96374; 99284; J3010; J7030; J2405

== ENCOUNTER 2021-06-28 05:58 | Day surgery (SDC) | payer OTHER ==
[2021-06-24 14:47] LABS: Basophils % 0.5 % (0-1.3); Lymphocytes % 21.2 % (15.3-44.8); RBC Red Blood Cell Count 4.94 M/uL (3.86-4.86)
[2021-06-24 15:00] LABS: Protime INR 0.99
[2021-06-24 15:05] LABS: BUN Blood Urea Nitrogen 10 mg/dL (7-18); Bicarbonate 26 mmol/L (21-32); Glucose Level 95 mg/dL (74-106); Potassium 3.9 mmol/L (3.5-5.1); Sodium Level 137 mmol/L (136-145)
--- NOTE | 2021-06-25 07:39 | EKG ---
Test Date: 2021-06-24 Test Time: 13:01:58 [employer] Defense Specialist: TG MEASUREMENT RESULTS: Intervals: Rate: 70 ND: 116 QRSD: 72 QT: 380 QTc: 410 [place]: P: 45 ND: 116 QRS: 14 T: 33 INTERPRETIVE STATEMENTS: Normal sinus rhythm Low voltage QRS Borderline ECG No previous ECG available for comparison Electronically Signed On 06-25-21 07:36:30 CDT by Pierre Wylie
--- NOTE | 2021-06-25 09:35 | RAD REPORT ---
EXAM DESCRIPTION: RAD - Chest Pa And Lat (2 Views) - 06/24/2021 10:38 pm CLINICAL HISTORY: pre procedure Prolonged technical malfunction delayed final written report. COMPARISON: None TECHNIQUE: Frontal and lateral views of the chest were obtained. FINDINGS: The lungs are underinflated with elevated right hemidiaphragm. Lateral view has motion deg radation. No acute lung parenchymal process identifiable. No failure or volume overload. Heart size is normal and central vasculature is within normal limits. No pleural effusion or pneumothorax seen. No acut e bony finding noted. No aortic abnormality. IMPRESSION: No acute cardiopulmonary process.
[2021-06-28] MEDS ORDERED: Ringers Lactate 1,000 ML IV ONE (06:36)
[2021-06-28] MEDS ORDERED: CEFAZOLIN/SWI 2gm 2 GM/20 ML SYR ONE (06:36)
[2021-06-28 06:48] LABS: Specific Gravity 1.015 (1.005-1.030)
[2021-06-28] MEDS ORDERED: dexAMETHasone 10 MG/ML VIAL ONE ×2 (06:48→07:31)
[2021-06-28] MEDS ORDERED: MIDAZOLAM HCL 2 MG/2 ML INJ ONE (06:48)
[2021-06-28] MEDS ORDERED: LIDOCAINE 1% MPF 5 ML VIAL ONE (06:48)
[2021-06-28] MEDS ORDERED: ROPLVACAINE HCL 40 ML ONE (06:48)
[2021-06-28] MEDS ORDERED: FENTANYL CITR 100 MCG/2 ML ONE (06:48)
[2021-06-28] MEDS ORDERED: LIDOCAINE 2% MPF 5 ML VIAL ONE (07:31)
[2021-06-28] MEDS ORDERED: propofoL 200 MG/20 ML VIAL IV ONE (07:31)
[2021-06-28] MEDS ORDERED: KETOROLAC 30 MG/ML INJ ONE (07:31)
[2021-06-28] MEDS ORDERED: ROCURONIUM 50 MG/5 ML VIAL IV ONE (07:31)
[2021-06-28] MEDS ORDERED: ONDANSETRON 4 MG/2 ML VIAL ONE ×2 (07:31→11:11)
[2021-06-28] MEDS ORDERED: EPINEPHRINE/PF 1 MG/ML AMP ONE (07:41)
[2021-06-28] MEDS ORDERED: GLYCOPYRROLATE 0.2 MG/ML SYR ONE (09:19)
--- NOTE | 2021-06-28 09:24 | P.BOP ---
Preoperative diagnosis: right shoulder rotator cuff tear, impingement syndrome Postoperative diagnosis: same, right shoulder SLAP tear Primary procedure: right shoulder arthroscopic rotator cuff tear debridement Secondary procedure: right shoulder arthroscopic SLAP tear debridement Other procedure(s): right shoulder arthroscopic subacromial decompression Estimated blood loss: 5 cc Specimen: none Findings: see dictation Anesthesia: General Complications: None Implants: none Fluids & blood products: per anesthesia record Transferred to: Recovery Room Condition: Good
[2021-06-28] MEDS ORDERED: NEOSTIGMINE 1 MG/ML -5 ML ONE (09:25)
--- NOTE | 2021-06-28 10:05 | RAD REPORT ---
EXAM DESCRIPTION: RAD - Shoulder 1 View - 06/28/2021 9:40 am CLINICAL HISTORY: s/p R shoulder rotator cuff debridement w SAD COMPARISON: No comparisons FINDINGS: No right shoulder fracture identified. The shoulder appears located on the single frontal view. IMPRESSION: Unremarkable right shoulder.
[2021-06-28 10:31] VITALS: BP 107/42; TEMP 96.4; O2SAT 98
[2021-06-28] MEDS ORDERED: HYDROCODONE/APAP 7.5/325 MG TAB ONE (10:31)
--- NOTE | 2021-06-28 11:49 | OP ---
Date of Procedure: 06/28/2021 Surgeon: Shashank Betancourt MD Preoperative Diagnoses: 1. Right shoulder rotator cuff tear. 2. Right shoulder impingement syndrome. Postoperative Diagnoses: 1. Right shoulder rotator cuff tear. 2. Right shoulder impingement syndrome. 3. Right shoulder SLAP tear. Procedure Performed: 1. Right shoulder arthroscopic rotator cuff debridement. 2. Right shoulder arthroscopic SLAP tear debridement. 3. Right shoulder arthroscopic subacromial decompression. Anesthesia: General endotracheal. Fluids: Per Anesthesia record. Estimated Blood Loss: 5 cc. Implants: None. Complications: None. Indication For Procedure: Sailaja is a 40-year-old female who presented to my clinic with signs and symptoms and MRI finding consistent with right shoulder rotator cuff tear and impingement syndrome. The patient failed conservative treatment management. I have discussed with the patient at length the risks, benefits associated with operative and non-operative treatment. She expressed understanding and elected to proceed with operative treatment. Description Of Procedure: After informed consent was obtained, the patient was identified in the preoperative holding area. The right upper extremity was marked. The patient then taken to the PACU where she underwent anesthesia block performed by Anesthesia. She was then taken back to the operating room, transferred to the operating table in supine fashion and placed under general endotracheal anesthesia. She was then placed in a beach chair position with her extremities well padded. The right upper extremity was then prepped and draped in usual sterile fashion. A time-out was initiated, the correct patient and procedure was appropriately identified. Patient did receive preoperative prophylactic antibiotics. A spinal needle was introduced into the glenohumeral joint via the posterior portal position and injected with 30 cc of normal saline to distend the capsule. An 11 blade was then used to create a posterior portal. The arthroscope was brought in via the posterior portal position and diagnostic arthroscopy was performed under direct visualization. An anterior portal and cannula were placed. The patient was noted to have some undersurface tear of the articular aspect of the supraspinatus anteriorly which was debrided using the arthroscopic shaver and there appeared to be 110% of thickness of rotator cuff. The infraspinatus was found to be intact, stable to probe. Subscapularis was also found to have a tear of the superior border of the subscapularis, which was debrided using arthroscopic shaver. The patient had overall no significant chondral damage to her glenoid or her head. The patient did have some fraying superior labrum consistent with type 1 SLAP tear. This was debrided using arthroscopic shaver, it was then probed. There was no instability noted to the superior labrum. The biceps tendon was found to be intact and stable to probe. It was biceps and it was then brought into the joint using the probe, but there was no significant synovitis noted within the bicipital groove. The arthroscope was then brought into the axillary pouch and no loose bodies were noted. The arthroscope was then brought into the subacromial space and there was significant amount of subacromial bursitis noted with hyperemic tissue. Subacromial bursectomy was performed, the bursal aspect of the rotator cuff was then probed anteriorly and posteriorly there was no full-thickness tear noted. The undersurface of the acromion was then debrided using arthroscopic shaver and radiofrequency ablator. There was some mild fraying of the coracoacromial ligament and a subacromial decompression performed. Arthroscopic tori was then used for acromioplasty, arthroscope was then removed without complication. The wound was then irrigated thoroughly with normal saline. The skin was approximated with 3-0 Monocryl. The patient was placed in a shoulder immobilizer, awakened and transferred to the PACU in stable condition. Postoperative Plan: She will follow the post subacromial decompression protocol and followup in 1 week for wound check. [place]/[facility] Voice ID: [id number] Report ID: [id number] LYDIA
== END 2021-06-28 11:05 | disposition home or self-care (01) ==
LOC: OR 05:58
PROVIDERS: ATTEND Orthopaedic Surgery Sports Medicine
PROC: 0RNJ4ZZ Release Right Shoulder Joint, Percutaneous Endoscopic Approach (ICD-10-PCS; 2021-06-28)
PROC: 0RBJ4ZZ Excision of Right Shoulder Joint, Percutaneous Endoscopic Approach (ICD-10-PCS; principal; 2021-06-28 07:30)
DX: M75.101 Unspecified rotator cuff tear or rupture of right shoulder, not specified as traumatic (principal); M75.41 Impingement syndrome of right shoulder; Z20.822 Contact with and (suspected) exposure to COVID-19
CPT/HCPCS: 93005; 85025; 80048; 36415; 81025; 85610; 85730; 71046; 73020; 29822; 29826; U0002; J2704; J0171; J2250; J3010; J1100 ×2; J2795; J2710; J0690; J7120; J2405 ×2